=== PATIENT | female | born 1935 | race Caucasian/White ===

== ENCOUNTER 2020-10-27 00:55 | Inpatient (IN) | payer OTHER ==
[~2020-10-27] VITALS: Ht 157.5 cm; Wt 70.4 kg
[~2020-10-27 00:55] MED LIST: ACETAMINOPHEN325 MG PO; ACTOS30 MG PO; ASCORBIC ACID500 MG PO; ATROVENT (00.2 MG/ML NEB; CALCIUM CITRAT1 EA14 PO; CALCIUM CITRAT250 MG PO; CEFDINIR300 MG PO; CERTAGEN1 EACH PO; FLEXERIL10 MG PO; FOSINOPRIL SODI40 MG PO; GLIPIZIDE ER10 MG PO; GLUCOTROL5 MG PO; LACTINEX1 EACH PO; LEVAQUIN750 MG PO; LIPITOR20 MG PO; LOPRESSOR50 MG PO; MAALOX ADVANCE355 ML PO; MAG-OXIDE 400M400 MG PO; METRONIDAZOLE500 MG PO; MILK OF MA400 MG/5 M PO; MOBIC7.5 MG PO; MUCUS RELIEF400 MG PO; NOVOLIN R100 UNIT/2 SC; PHENERGAN25 M1 PO; PRILOSEC20 MG PO; PRINIVIL20 MG PO; ROBITUSSIN W/COD5 ML PO; TYLENOL650 MG PO; VITAMIN D400 UNI1 PO; VITAMIN E100 UNI1 PO; XOPENEX (11.25 MG/3 NEB; XOPENEX (11.25 MG/3 PO
[2020-10-27 03:14] LABS: HCT 25.1 % (37.0-47.0); HGB 7.4 g/dl (12.5-16.0); LYMPHOCYTE 5.2 % (15-48); MCH 27.5 pg (25.0-31.0); MCHC 29.5 g/dL (32.0-36.0); MCV 93.3 fL (78.0-100.0); MONOCYTE 7.8 % (0-12); MPV 10.7 fL (6.0-9.5); NEUTROPHIL 86.4 % (41-80); PLT 176 K/uL (150-400); RBC 2.69 M/uL (4.20-5.40); RDW 15.9 % (11.5-14.0); WBC 6.58 K/uL (4.0-10.5)
[2020-10-27 03:21] LABS: ALBUMIN 2.2 g/dL (3.4-5.0); BILIRUBIN - TOTAL 0.5 mg/dL (0.2-1.0); BUN/CREAT RATIO (CALC) 54.9 RATIO; CREATININE 1.02 mg/dL (0.51-0.95); GLOBULIN (CALCULATION) 3.2 g/dL; POTASSIUM 3.3 mmol/L (3.5-5.1); TOTAL PROTEIN 5.4 g/dL (6.4-8.2)
[2020-10-27 03:26] LABS: INR 1.24 (0.9-1.2); PROTHROMBIN TIME 14.8 SECONDS (11.4-13.6); PTT 31.1 SECONDS (22.2-34.7)
[2020-10-27] MEDS ORDERED: LIPITOR40 MG PO (05:48)
[2020-10-27] MEDS ORDERED: MIRTAZAPINE7.5 MG PO (05:48)
[2020-10-27] MEDS ORDERED: GLUCOTROL10 MG PO (05:48)
[2020-10-27] MEDS ORDERED: LOPRESSOR50 MG PO (05:49)
[2020-10-27] MEDS ORDERED: ONDANSETRON ODT4 MG PO (05:49)
[2020-10-27] MEDS ORDERED: VITAMIN D310 MC1 PO (05:51)
[2020-10-27] MEDS ORDERED: CALCIUM 600 +1 EA10 PO (05:52)
[2020-10-27] MEDS ORDERED: VITAMIN E45 MG PO (05:53)
[2020-10-27] MEDS ORDERED: ACTOS45 MG PO (05:53)
[2020-10-27] MEDS ORDERED: ASCORBIC ACID500 MG PO (05:53)
[2020-10-27] MEDS ORDERED: NITROQUIK SL0.4 MG SL (05:54)
[2020-10-27] MEDS ORDERED: PREDNISONE 10MG10 MG PO (05:55)
[2020-10-27 08:29] LABS: HCT 21.7 % (37.0-47.0); HGB 6.6 g/dL (12.5-16.0); RETICULOCYTE COUNT 2.2 % (1.0-2.0)
[2020-10-27 08:53] LABS: IRON % SATURATION 14.7 %SAT (20-50)
--- NOTE | 2020-10-27 09:07 | NUR ---
0800 PT VOMITTED BRIGHT RED BLOOD WITH BLOOD CLOTS, UNABLE TO MEASURE BUT WAS A MODERATED TO LAR[place]OUNT, DR DE LA TORRE CAME TO BED SIDE AND WANTS A 1UNIT OF BLOOD ORDERED AND REPEAT H&H [facility] WENT FROM 7.4 TO 6.[address] HUERTA NOTIFIED AND HE WILL SCOPE HER TODAY BUT WANTS TO TRANSFER IF POSSIBLE.
[2020-10-27 09:26] LABS: BUN/CREAT RATIO (CALC) 57.8 RATIO; CREATININE 1.02 mg/dL (0.51-0.95); FOLIC ACID (SERUM) 2.5 ng/mL (8.6-58.9); POTASSIUM 3.4 mmol/L (3.5-5.1)
--- NOTE | 2020-10-27 14:38 | NUR ---
10/27/20 Patient was transferred to [facility].
== END 2020-10-27 12:43 | disposition other institution (70) | DRG 378 ==
LOC: FER 00:55 → FICU 04:29
PROVIDERS: Emergency Medicine; Nurse Practitioner; ADMIT Internal Medicine
PROC: 30233N1 Transfusion of Nonautologous Red Blood Cells into Peripheral Vein, Percutaneous Approach (ICD-10-PCS; principal; 2020-10-27)
DX: K29.71 Gastritis, unspecified, with bleeding (principal); D62 Acute posthemorrhagic anemia; E11.9 Type 2 diabetes mellitus without complications; I10 Essential (primary) hypertension; I25.10 Atherosclerotic heart disease of native coronary artery without angina pectoris; Z20.822 Contact with and (suspected) exposure to COVID-19; E66.01 Morbid (severe) obesity due to excess calories; E78.00 Pure hypercholesterolemia, unspecified; F32.9 Major depressive disorder, single episode, unspecified; E87.6 Hypokalemia; Z87.440 Personal history of urinary (tract) infections; Z86.16 Personal history of COVID-19; Z85.3 Personal history of malignant neoplasm of breast; Z90.11 Acquired absence of right breast and nipple; Z98.890 Other specified postprocedural states; Z88.0 Allergy status to penicillin; Z88.8 Allergy status to other drugs, medicaments and biological substances; Z79.899 Other long term (current) drug therapy; Z68.28 Body mass index [BMI] 28.0-28.9, adult; I25.2 Old myocardial infarction
CPT/HCPCS: 36415; 36430; 71045; 80048; 80053; 82150; 82607; 82746; 82962; 83540; 83550; 83690; 85014; 85018; 85025; 85610; 85730; 86850; 86900; 86901; 86922; 93005; 96374; C9113; J7030; P9016; U0002

== ENCOUNTER 2021-10-01 15:06 | Emergency (ER) | payer MEDICARE, OTHER ==
[~2021-10-01 15:06] MED LIST changes: +ACTOS45 MG PO; +CALCIUM 600 +1 EA10 PO; +GLUCOTROL10 MG PO; +LIPITOR40 MG PO; +MIRTAZAPINE7.5 MG PO; +NITROQUIK SL0.4 MG SL; +ONDANSETRON ODT4 MG PO; +PREDNISONE 10MG10 MG PO; +VITAMIN D310 MC1 PO; +VITAMIN E45 MG PO
[2021-10-01 17:50] LABS: BASOPHIL 0.4 % (0-2); EOSINOPHIL 1.8 % (0-7); HCT 36.7 % (37.0-47.0); LYMPHOCYTE 15.4 % (15-48); MCH 26.2 pg (25.0-31.0); MCHC 27.2 g/dL (32.0-36.0); MCV 96.3 fL (78.0-100.0); MPV 9.9 fL (6.0-9.5); NEUTROPHIL 66.6 % (41-80); NRBC 0; PLT 123 K/uL (150-400); RBC 3.81 M/uL (4.20-5.40); RDW 19.1 % (11.5-14.0)
[2021-10-01 18:16] LABS: BUN/CREAT RATIO (CALC) 52.6 RATIO; CREATININE 0.97 mg/dL (0.51-0.95); POTASSIUM 4.9 mmol/L (3.5-5.1)
[2021-10-01] MEDS ORDERED: LASIX40 MG PO (18:48)
[2021-10-01] MEDS ORDERED: K-TAB ER20 MEQ PO (18:48)
== END 2021-10-01 19:35 | disposition home or self-care (01) ==
LOC: FER 15:06
PROVIDERS: Emergency Medicine
DX: I50.9 Heart failure, unspecified (principal); E11.9 Type 2 diabetes mellitus without complications; Z88.0 Allergy status to penicillin; Z88.8 Allergy status to other drugs, medicaments and biological substances; Z91.018 Allergy to other foods
CPT/HCPCS: 36415; 71045; 80048; 83880; 84484; 85025; 93005; J1940